=== PATIENT | male | born 1965 | race Caucasian/White ===

== ENCOUNTER 2022-01-12 07:40 | Emergency (ER) | payer OTHER, SELFPAY ==
[2022-01-12 07:57] VITALS: BP 101/79; PULSE 70; RESP 16; TEMP 36.6; O2SAT 98
[2022-01-12 08:11] VITALS: BP 101/79; PULSE 68; RESP 18; O2SAT 100; BMI 26.4
--- NOTE | 2022-01-12 08:33 | ED.EYEPROB ---
HPI - Eye Problem General Chief complaint: Eye Problems Stated complaint: fb l eye at work Time Seen by Provider: 01/12/22 08:09 Source: patient Mode of arrival: ambulatory Limitations: no limitations History of Present Illness MD chief complaint: eye pain and eye injury Onset (ago): day(s) (yesterday ) Onset description: sudden Duration: constant Location: left eye Eye Symptoms: burning, redness, pain and foreign body sensation Place: work Mechanism: direct trauma (concrete mortar into eye at work) Severity: moderate If Pain, Quality: burning and aching Context: trauma Associated symptoms: none Treatments Prior to Arrival: other (intense irrigation at work) Related Data Previous Rx's Medication Instructions Recorded erythromycin 5 mg/gram (0.5 %) eye 0.5 inch OPHTHALMIC (EYE) BID 7 01/12/22 ointment Days #3.5 g hydrocodone 5 mg-acetaminophen 325 1 tab PO Q6H PRN #10 tab 01/12/22 mg tablet Allergies Allergy/AdvReac Type Severity Reaction Status Date / Time No Known Allergies Allergy Verified 01/12/22 08:30 Review of Systems Review of Systems: Constitutional : No Fever, No Chills, Eyes: pos FB sensation, no change in vision Cardiovascular : No Chest Pain, No SOB Respiratory : No Dyspnea Gastrointestinal : No abdominal pain Musculoskeletal : No Joint Swelling Skin : No rash, no skin laceration Neuro : No Weakness, No Numbness PMFSH Social History Social History Advance Directives: Yes Advance Directives Information Provided: No Advance Directives on File: No Physical Exam Vital Signs: Vital Signs: Last Vital Signs Temp 97.9 F 01/12/22 07:57 Pulse 68 01/12/22 08:11 Resp 18 01/12/22 08:11 BP 101/79 01/12/22 08:11 Pulse Ox 100 01/12/22 08:11 BMI result Body Mass Index 26.4 Appearance: Alert. Oriented X3. No acute distress. Eyes: Pupils equal, round and reactive to light. L eye injected, L conjunctiva injected with mild chemosis no uptake PERRL no FB seen lids everted no abrasion noted ENT: Pharynx normal. Neck: Normal inspection. Neck supple. CVS: Pulses normal. Respiratory: No respiratory distress. Abdomen: atraumatic Skin: Skin warm and dry. Normal skin color. . Extremities: No lower extremity edema. Neuro: Oriented X 3. No motor deficit. No sensory deficit. MDM - Eye Problem MDM Narrative Medical decision making narrative: 56 yo male with exposure to concrete mortar in L eye at work yesterday no contact lens no change in vision no FB seen on exam - PERRL, no abrasion seen with fluorescin or mitchell lamp will start on ointment and pain meds refer to eye doctor. Stable for DC Discharge Plan Discharge Clinical Impression: Chemosis of conjunctiva Qualifiers: Laterality: left Qualified Code(s): H11.422 - Conjunctival edema, left eye Patient Disposition: Home, Self-Care Instructions: Eye Foreign Body (ED) Additional Instructions: return to ED for any worsening symptoms or concerns no contact lens if not better in 1 days please see eye doctor as soon as possible Prescriptions: New erythromycin 5 mg/gram (0.5 %) ointment 0.5 inch ophthalmic (eye) BID 7 Days Qty: 3.5 0RF Rx Instructions: left eye hydrocodone-acetaminophen 5-325 mg tablet 1 tab PO Q6H PRN (Reason: pain) Qty: 10 0RF Rx Instructions: partial fill okay Stand Alone Forms: Work/School Release Interventions: ED Discharge Assessment Last Done: 01/12/22 09:09 Discharge Date/Time: 01/12/22 09:16
[2022-01-12] MEDS: Tetracaine HCl/PF 0.5% Oph Sol 4 ML DROPS 1 DROP EYE-LEFT (08:56)
[2022-01-12] MEDS: Fluorescein Sodium STRIP 1 STRIP EYE-LEFT (08:56)
== END 2022-01-12 09:16 | disposition home or self-care (01) ==
PROVIDERS: Emergency Provider Emergency Medicine
DX: H11.422 Conjunctival edema, left eye (principal)
CPT/HCPCS: 99283